=== PATIENT | male | born 1950 | race Caucasian/White ===

== ENCOUNTER 2023-04-04 09:46 | Outpatient (CLI) | payer MEDICARE, BC ==
[2023-04-04 11:31] LABS: BASOPHILS % (AUTO) 0.6 % (0.0-2.0); EOSINOPHILS % (AUTO) 8.3 % (0.0-6.0); HEMATOCRIT 40 % (39-51); HEMOGLOBIN 13.1 g/dL (13.5-17.5); LYMPHOCYTES # (AUTO) 2.1 K/uL (0.8-4.8); LYMPHOCYTES % (AUTO) 35.8 % (20.0-44.0); MEAN CORPUSCULAR HGB CONC 33 g/dl (31.0-36.0); MEAN CORPUSCULAR VOLUME 90 fL (80-96); MONOCYTES # (AUTO) 0.5 K/uL (0.1-1.30); MONOCYTES % (AUTO) 9.2 % (2.0-12.0); NEUTROPHILS # (AUTO) 2.7 K/uL (1.8-8.9); NEUTROPHILS % (AUTO) 46.1 % (43.0-81.0); PLATELET COUNT (AUTO) 318 K/uL (150-450); RED BLOOD CELL COUNT(AUTO) 4.43 MIL/uL (4.5-6.0)
[2023-04-04 11:50] LABS: CALCIUM, SERUM 9.3 mg/dL (8.5-10.1); CREATININE 1.2 mg/dL (0.6-1.3); POTASSIUM 4.8 mmol/L (3.5-5.1)
[2023-04-04 11:56] LABS: BILIRUBIN,URINE NEGATIVE (NEGATIVE); COLOR,URINE YELLOW (YELLOW); LEUKOCYTE ESTERASE ,URINE NEGATIVE (NEGATIVE); NITRITE, URINE NEGATIVE (NEGATIVE); PROTEIN,URINE NEGATIVE (NEGATIVE); UGLUCOSE 3+ mg/dL (NEGATIVE); UROBILINOGEN,URINE 0.2 EU/dL (0.2)
[2023-04-04 12:00] LABS: BACTERIA,URINE Rare /HPF (None Seen); RBC,URINE 0-2 /HPF (0-2); SQUAMOUS EPITHELIAL CELL,UR Few /HPF (None Seen); WBC,URINE 0-2 /HPF (0-3)
== END 2023-04-04 23:59 | disposition home or self-care (01) ==
LOC: LAB 09:46
PROVIDERS: ATTEND Dentist Oral and Maxillofacial Surgery
DX: Z01.818 Encounter for other preprocedural examination (principal); Z20.822 Contact with and (suspected) exposure to COVID-19; I25.10 Atherosclerotic heart disease of native coronary artery without angina pectoris; I10 Essential (primary) hypertension; E11.40 Type 2 diabetes mellitus with diabetic neuropathy, unspecified
CPT/HCPCS: 71045; 93005; 85025; 80048; 81001; 36415; 85730; U0003; C9803

== ENCOUNTER 2023-04-12 09:48 | Inpatient (IN) | payer MEDICARE, BC ==
[~2023-04-12] VITALS: Ht 182.9 cm; Wt 75.7 kg
--- NOTE | 2023-04-12 10:00 | NUR ---
MS CORPORATE LIBRARIAN NOTE RECEIVED PATIENT FROM ER VIA WHEELCHAIR FOR ELECTIVE ORAL SURGERY. PATIENT IS A/O X4, ABLE TO MAKE NEEDS KNOWN. PATIENT ORIENTED TO ROOM AND HOW TO USE THE CALL LIGHT. ON ROOM AIR, BREATHING EVEN AND UNLABORED. NO SOB OR S/S OF DISTRESS NOTED. ALL BELONGINGS ACCOUNTED FOR, BELONGING SHEET SIGNED. INSERTED IV ACCESS ON LEFT FOREARM #20G SL, INTACT AND FLUSHING WELL. VITAL SIGNS TAKEN FOLLOWS: BP 150/90, TEMP 98.2, HR 72 AND O2 SATURATION OF 96%. SKIN ASSESSMENT DONE, SKIN INTACT. LUNGS CLEAR BILATERALLY UPON AUSCULTATION. BOWEL SOUNDS PRESENT. NO PAIN NOTED. SAFETY PRECAUTIONS IN PLACE, BED IN LOW, LOCKED POSITION, SIDERAILS UP X2; CALL LIGHT WITHIN REACH. WILL CONTINUE TO MONITOR. Addendum: 04/12/23 at 1326 by TAMIKO ELLINGTON RN Correction: Pt admitted to unit ambulatory accompanied by admitting staff @ 1000
--- NOTE | 2023-04-12 10:15 | NUR ---
RN NOTE SURGICAL CHECKLIST DONE. CONSENT FOR PROCEDURE, ANESTHESIA AND BLOOD TRANSFUSION SIGNED BY PATIENT. WILL CONTINUE TO MONITOR THE PATIENT
--- NOTE | 2023-04-12 13:59 | NUR ---
RN NOTES PATIENT PICKED-UP VIA HIS BED TO SURGERY
[2023-04-12] MEDS ORDERED: FENTANYL PF 100MCG/2ML AMPUL ONE (14:33)
[2023-04-12] MEDS ORDERED: OXYMETAZOLINE HCL NASAL SPRAY 30 ML BOTTLE NS ONE (14:33)
[2023-04-12] MEDS ORDERED: FAMOTIDINE/PF INJ 20 MG/2 ML VIAL IV ONE (14:34)
[2023-04-12] MEDS ORDERED: ROCURONIUM BROMIDE 50 MG/5 ML ONE ×2 (14:34→14:47)
[2023-04-12] MEDS ORDERED: DEXAMETHASONE SOD PHOSPHATE 10 MG/ML VIAL ONE (14:35)
[2023-04-12] MEDS ORDERED: VANCOMYCIN 1 GM VIAL ONE (14:35)
[2023-04-12] MEDS ORDERED: LIDOCAINE 2%-EPI 1:100,000 30 ML VIAL ONE (14:40)
[2023-04-12] MEDS ORDERED: LABETALOL HCL IV 100MG VIAL ONE (15:35)
[2023-04-12] MEDS ORDERED: HYDROMORPHONE 1 MG/1 ML DISP.SYRIN ONE (17:34)
[2023-04-12 18:00] VITALS: BP 112/68
--- NOTE | 2023-04-12 18:12 | NUR ---
RN NOTES PT RETURNED TO UNIT @ 1800 ACCOMPANIED BY RN JUDSON CONN S/P GAURAV-MICHELLE, LEFT VERTICAL SINUSOTOMY RIGHT RESECT NEOPLASMS, MAXILLA B/L & RIGHT MANDIBLE. R/O OSTEOMYELITIS, ORIF SINUS WALL/FLOOR & RIGHT MANDIBLE BY KINDRA CONTRERAS. PT IS AWAKE, A/O X4. NO C/O PAIN VOICED AT THIS TIME. AT BEDSIDE AT THIS TIME. V/S CHECKED: BP 112/68, P 79, R 16 , T 97.8F AND SP02 95% ON RA. ALL SAFETY MEASURES MAINTAINED. CALL LIGHT PLACED W/I EASY REACH. ALL POST OP ORDERS RECEIVED AND WILL CARRY OUT. WILL CONTINUE TO MONITOR PT CLOSELY.
[2023-04-12 18:15] VITALS: BP 114/59
[2023-04-12 18:30] VITALS: BP 114/68
[2023-04-12] MEDS ORDERED: METF-442 PO (18:40)
[2023-04-12] MEDS ORDERED: AMIT10TA6 PO (18:40)
[2023-04-12] MEDS ORDERED: ATOR40TA PO (18:40)
[2023-04-12] MEDS ORDERED: PANT40TA49 PO (18:40)
[2023-04-12] MEDS ORDERED: FAMO40TA7 PO (18:40)
[2023-04-12] MEDS ORDERED: DULA1.5P SQ (18:40)
[2023-04-12] MEDS ORDERED: ZOLP5TAB8 PO (18:40)
[2023-04-12] MEDS ORDERED: PREG-57 PO (18:40)
[2023-04-12] MEDS ORDERED: EMPA25TA PO (18:40)
[2023-04-12] MEDS ORDERED: ENAL10TA39 PO (18:40)
[2023-04-12] MEDS ORDERED: AMLO-213 PO (18:40)
[2023-04-12] MEDS ORDERED: GABA-532 PO (18:41)
[2023-04-12 18:45] VITALS: BP 119/74
[2023-04-12] MEDS ORDERED: Z GUARD REMEDY 4 OZ OINT TP PRN (19:00)
[2023-04-12] MEDS ORDERED: IV NS 0.9% 1,000 ML IV PRN (19:00)
[2023-04-12] MEDS ORDERED: ACETAMINOPHEN 325 MG TABLET PO PRN (19:00)
[2023-04-12] MEDS ORDERED: ZOLPIDEM TARTRATE 5 MG TABLET PO PRN (19:00)
[2023-04-12] MEDS ORDERED: MAGNESIUM HYDROXIDE 30 ML UDC PO PRN (19:00)
[2023-04-12] MEDS ORDERED: TEMAZEPAM 15 MG CAPSULE PO PRN (19:00)
[2023-04-12] MEDS ORDERED: HYDROCODONE/APAP 5/325MG TABLET PO PRN (19:00)
[2023-04-12] MEDS ORDERED: MAG HYDROX/AL HYDROX/SIMETH 30 ML UDC PO PRN (19:00)
[2023-04-12] MEDS ORDERED: ONDANSETRON HCL/PF 4 MG/2 ML VIAL IVP PRN (19:00)
[2023-04-12] MEDS ORDERED: DEXTROSE 50%-WATER 50 ML DISP.SYRIN IV PRN (19:00)
[2023-04-12 19:47] LABS: CALCIUM, SERUM 8.5 mg/dL (8.5-10.1); CARBON DIOXIDE 22 mmol/L (21-32); CHLORIDE 106 mmol/L (98-107); CREATININE 1.1 mg/dL (0.6-1.3); GLUCOSE 176 mg/dL (74-106); SODIUM SERUM 138 mmol/L (136-145); UREA NITROGEN, BLOOD 23 mg/dL (7-18)
[2023-04-12 20:00] VITALS: BP 120/72
--- NOTE | 2023-04-12 20:30 | NUR ---
RN MS OPENING NOTES RECEIVED PATIENT IN BED, ON MODERATE HIGH BACK REST POSITION. A/O X 4. ON ROOM AIR SATURATING WELL NO COMPLAIN OF SOB/ AT THIS TIME. PATIENT IS AMBULATORY WITH ASSISTANCE. CONTINENT WITH BRP BUT USES URINAL. ON CLEAR LIQUID DIET FOR NOW AND ICE CHIP AND ADVANCE IF THE PATIENT CAN TOLERATE IT. NO ASPIRATION NOTED. WITH IV ACCESS AT RFA #20G WITH NS AT 30ML/HR INFUSING WELL. ON SUGAR MONITORING. KEPT BED ON LOWER LOCKED POSITION, KEPT SIDE RAILS UP X 2 ALL THE TIME, CALL LIGHT WITHIN AT REACH. SAFETY PRECAUTIONS MAINTAINED. KEPT PATIENT WARM AND COMFORTABLE. NO PAIN OR DISCOMFORT NOTED. WILL CONTINUE TO MONITOR.
[2023-04-12] MEDS ORDERED: ATORVASTATIN 40 MG TABLET PO SCH (22:00)
[2023-04-12] MEDS ORDERED: AMITRIPTYLINE HCL 10 MG TABLET PO SCH (22:00)
--- NOTE | 2023-04-12 22:00 | NUR ---
RN NOTES PATIENT BLOOD SUGAR IS 193MMHG. PATIENT REFUSED INSULIN. WILL CONTINUE TO MONITOR
[2023-04-12] MEDS: BLOOD SUGAR DIAGNOSTIC 1 EACH STRIP IN SCH (22:28)
[2023-04-12] MEDS: INSULIN REGULAR, HUMAN 100 UNIT/ML 3 ML VIAL SQ PRN (23:18)
[2023-04-12] MEDS: MORPHINE SULFATE INJ 2 MG/ML DISP.SYRIN IV PRN (23:31)
[2023-04-13] MEDS: MORPHINE SULFATE INJ 2 MG/ML DISP.SYRIN IV PRN (03:38)
[2023-04-13 06:13] LABS: BASOPHILS % (AUTO) 0.1 % (0.0-2.0); HEMATOCRIT 40 % (39-51); HEMOGLOBIN 12.6 g/dL (13.5-17.5); LYMPHOCYTES # (AUTO) 1.5 K/uL (0.8-4.8); MEAN CORPUSCULAR HGB CONC 32 g/dl (31.0-36.0); MEAN CORPUSCULAR VOLUME 91 fL (80-96); MONOCYTES # (AUTO) 0.8 K/uL (0.1-1.30); MONOCYTES % (AUTO) 4.8 % (2.0-12.0); NEUTROPHILS # (AUTO) 14.5 K/uL (1.8-8.9); NEUTROPHILS % (AUTO) 86.1 % (43.0-81.0); PLATELET COUNT (AUTO) 311 K/uL (150-450); RED BLOOD CELL COUNT(AUTO) 4.32 MIL/uL (4.5-6.0); WHITE BLOOD COUNT (AUTO) 16.8 K/uL (4.3-11.0)
--- NOTE | 2023-04-13 06:15 | NUR ---
RN NOTES PATIENT SUGAR IS 189MMHG AND REFUSED INSULIN. WILL CONTINUE TO MONITOR
--- NOTE | 2023-04-13 06:26 | NUR ---
RN MS CLOSING NOTES PATIENT IS ON BED, A/O X 4 ON MODERATE HIGH BACK REST POSITION, ABLE TO VERBALIZED CONCERNS AND NEEDS. ON ROOM AIR SATURATING WELL, NO COMPLAIN OF PAIN OR DISCOMFORT AT THIS TIME. PATIENT IS CONTINENT USES URINAL FOR NOW. PATIENT IS AMBULATORY WITH ASSISTANCE. ABLE TOLERATE LIQUID TO SOFT DIET; NO S/S OF ASPIRATION NOTED AT THIS TIME. WITH IV ACCES AT FRA #20G WITH NS 1L AT 30ML/HR INFUSING WELL NO SWELLING OR INFILTRATION NOTED AT THIS TIME. FOR CARDIO AND PULMO CONSULT THIS AM. NO ACTIVE BLEEDING NOTED, KEPT BED ON LOWER LOCKED POSITION, KEPT SIDE RAILS X 2 ALL THE TIME, KEPT CALL LIGHT WITHIN AT REACH. KEPT PATIENT WARM AND COMFORTABLE. WILL ENDORSED TO NEXT SHIFT FOR JOEY.
[2023-04-13 06:34] LABS: CALCIUM, SERUM 8.8 mg/dL (8.5-10.1); CREATININE 1.1 mg/dL (0.6-1.3); MAGNESIUM 2.1 mg/dL (1.8-2.4); PHOSPHORUS 4.3 mg/dL (2.5-4.9); POTASSIUM 5.7 mmol/L (3.5-5.1)
--- NOTE | 2023-04-13 07:25 | NUR ---
RN MS OPENING NOTES RECEIVED PATIENT IN BED, AWAKE. A/O X 4, ABLE TO MAKE NEEDS KNOWN. NO C/O PAIN/DISCOMFORT AT THIS TIME. ON ROOM AIR, SATURATING WELL. IV ACCESS IN THE RFA #20G WITH ONGOING ns AT 30ML/HR, INFUSING WELL. NO ACTIVE BLEEDING NOTED. SAFETY MEASURES IMPLEMENTED: BED ON LOWER LOCKED POSITION, SIDE RAILS UP X 2, CALL LIGHT AND TRAY TABLE WITHIN EASY REACH. WILL CONTINUE TO MONITOR.
[2023-04-13] MEDS ORDERED: PANTOPRAZOLE 40 MG TABLET.DR PO SCH ×2 (07:30)
[2023-04-13] MEDS: BLOOD SUGAR DIAGNOSTIC 1 EACH STRIP IN SCH (07:34)
[2023-04-13] MEDS: INSULIN REGULAR, HUMAN 100 UNIT/ML 3 ML VIAL SQ PRN (07:35)
[2023-04-13] MEDS ORDERED: IV NS 0.9% 1,000 ML IV PRN (08:00)
[2023-04-13] MEDS ORDERED: AMLODIPINE BESYLATE 10 MG TABLET PO SCH (09:00)
[2023-04-13] MEDS ORDERED: METFORMIN 500 MG TABLET PO SCH (09:00)
[2023-04-13] MEDS ORDERED: EMPAGLIFLOZIN 25 MG TABLET PO SCH (09:00)
[2023-04-13] MEDS ORDERED: GABAPENTIN 100 MG CAPSULE PO SCH (09:00)
[2023-04-13] MEDS ORDERED: ENALAPRIL MALEATE (10 MG) 10 MG TABLET PO SCH (09:00)
[2023-04-13 10:03] VITALS: BP 126/72
--- NOTE | 2023-04-13 10:50 | NUR ---
PRODUCTION SUPERVISOR OFF SHIFT NOTE Patient discharged to home today in stable condition. MD and Charge Nurse aware. Pt left the unit ambulatory accompanied by .
== END 2023-04-13 10:30 | disposition home or self-care (01) | DRG 141 ==
LOC: DS 09:48 → MED 09:49
PROVIDERS: ADMIT Dentist Oral and Maxillofacial Surgery; ATTEND Dentist Oral and Maxillofacial Surgery
PROC: 0N5R0ZZ Destruction of Maxilla, Open Approach (ICD-10-PCS; principal; 2023-04-12)
PROC: 095 Ear, Nose, Sinus, Destruction (ICD-10-PCS; principal; 2023-04-12)
PROC: 0NBR0ZX Excision of Maxilla, Open Approach, Diagnostic (ICD-10-PCS; principal; 2023-04-12)
PROC: 0NSR04Z Reposition Maxilla with Internal Fixation Device, Open Approach (ICD-10-PCS; principal; 2023-04-12)
PROC: 0NUR07Z Supplement Maxilla with Autologous Tissue Substitute, Open Approach (ICD-10-PCS; principal; 2023-04-12)
PROC: 0NST04Z Reposition Right Mandible with Internal Fixation Device, Open Approach (ICD-10-PCS; principal; 2023-04-12)
DX: M27.2 Inflammatory conditions of jaws (principal); M84.48XA Pathological fracture, other site, initial encounter for fracture; S02.40DA Maxillary fracture, left side, initial encounter for closed fracture; S02.40CA Maxillary fracture, right side, initial encounter for closed fracture; S02.609A Fracture of mandible, unspecified, initial encounter for closed fracture; D16.4 Benign neoplasm of bones of skull and face; J32.0 Chronic maxillary sinusitis; D16.5 Benign neoplasm of lower jaw bone; E11.40 Type 2 diabetes mellitus with diabetic neuropathy, unspecified; E78.5 Hyperlipidemia, unspecified; I10 Essential (primary) hypertension; I25.10 Atherosclerotic heart disease of native coronary artery without angina pectoris; Z95.5 Presence of coronary angioplasty implant and graft; S02.2XXA Fracture of nasal bones, initial encounter for closed fracture; X58.XXXA Exposure to other specified factors, initial encounter; Y84.8 Other medical procedures as the cause of abnormal reaction of the patient, or of later complication, without mention of misadventure at the time of the procedure; Y82.8 Other medical devices associated with adverse incidents
CPT/HCPCS: 36415; 80048-TC; 80061-TC; 82962-TC; 83735-TC; 84100-TC; 85025-TC; 87081-TC; 88305-TC; 88311-TC; 88312-TC; 93307-TC; A4217; A4223; C1713; G0378; J1100; J1170; J1815; J2270; J2370; J2405; J2704; J2765; J3010; J3370; J3490; J7030; J7040; J7070